=== PATIENT | male | born 1950 | race Caucasian/White ===

== ENCOUNTER 2018-01-16 10:37 | Emergency (ER) | payer OTHER ==
[2018-01-16] MEDS ORDERED: fentaNYL 100 MCG/2 ML INJ IVP ONE (10:51)
--- NOTE | 2018-01-16 10:51 | EDPHY ---
General Time Seen by Provider: 01/16/18 10:46 Narrative: CHIEF COMPLAINT: Fall, left elbow pain HISTORY OF PRESENT ILLNESS: Patient complains of left elbow pain status post fall. This happened just prior to arrival. He slipped on a wet board, falling 2 ft landing on the outward stretched left upper extremity. He felt a sudden onset of pain and giving it sensation of the left elbow. It is constant, severe pain. Unable to move the elbow due to this. Minimal pain in the shoulder, hand or wrist. No numbness or tingling. No weakness. No head strike or loss of consciousness no complaints of pain or injury anywhere else. No other associated complaints or modifying factors. Right-hand dominant REVIEW OF SYSTEMS: Ten systems reviewed and are negative unless otherwise noted in the HPI PCP: [facility] SPECIALISTS: [facility] PAST MEDICAL HISTORY: Coronary artery disease, mi, hypertension, previous smoker PAST SURGICAL HISTORY: No recent surgeries SOCIAL HISTORY: Quit smoking several years ago. No drug or alcohol use. Lives here independently. FAMILY HISTORY: Noncontributory EXAMINATION General Appearance: Alert, no distress Head: normocephalic, atraumatic. No Carver sign. No raccoon eyes. Eyes: Pupils equal and round, no conjunctival pallor or injection ENT, Mouth: Mucous membranes moist Neck: Normal inspection, supple, non-tender Cardiovascular: Regular rate. Symmetric radial pulses 2+. Gastrointestinal: Abdomen is soft and nontender Back: non-tender, no bony abnormalities Neurological: A&O, nonfocal, 2 point sensation is intact in the fingers left hand. There is no wrist drop of the left upper extremity. Interossei strength symmetric. Skin: Warm and dry, no rash. Superficial abrasion to the left palm and wrist. There is no puncture laceration overlying the left elbow or forearm Extremities: Deformity and tenderness to the left elbow. Unable to range due to pain and deformity. No tenderness to palpation of the left shoulder, wrist or hand. There is no tenderness in left snuffbox. Strength in the interossei symmetric. Psychiatric: Mood and affect normal DIFFERENTIAL DIAGNOSES: Including but not limited to elbow dislocation, radial head fracture, distal humeral fracture, subluxation, sprain, strain MDM: 10:50 a.m. Mechanical fall just prior to arrival with left elbow pain and suspected dislocation. He is neuro intact. He is in no acute distress. We are placing IV for pain control and in anticipation of procedural sedation. X-ray is currently at bedside. He has no injuries elsewhere. 10:57 a.m. X-ray as read by me, at bedside without the aid of the radiologist, reveals dislocation with avulsion and fracture at the distal humerus on the condyle. I reviewed the x-ray with Dr. Ellison and he has examine the patient at this time. We will proceed with orthopedic consultation and close reduction of the elbow. 11:10 a.m. Case discussed with on-call orthopedist Dr. Petersen. He reviewed the x-ray with me. He agreed that the patient is stable for close reduction. He recommends planted 90, CT scan of the elbow, follow-up in 3-5 days with orthopedist. 11:35 a.m. Successful reduction of the left elbow using fluoroscopy. Procedural sedation provided by Dr. Ellison. He has been placed in a splint. We will allow him to wake up further and then obtain a CT scan of the extremity. 12:15 p.m. I have re-evaluated the patient twice since the reduction. He is awake and alert. He is protecting his airway with no difficulty. We will proceed with CT scan. 12:45 p.m. Patient has return from CT scanner. He is neurovascular intact. His pain is controlled. We will obtain a disc with the images as he will need to follow up with [facility]. We discussed ED precautions, ice, elevation and pain medication as needed. He is comfortable this plan and discharged home stable condition. PROCEDURE: Closed reduction of the elbow Indicaton: Elbow dislocation Consent: Verbal Location: Left elbow Anesthesia: Procedural sedation by Dr. Ellison Procedure: Radial pulses are symmetric pre procedure. After time-out and good procedural sedation, the left elbow was placed in traction with counter traction with successful manipulation of the humerus into the olecranon using c- arm fluoroscopy. This was tolerated well. Radial pulses symmetric postprocedure. Complications: None Post-reduction film: Confirmed with c-arm, and CT scan is pending. SUPERVISION: Patient was evaluated and examined in conjunction with my secondary supervising physician as documented. We have both examined the patient. (Nikhil Lovelace) Procedure: Procedural sedation. A pre-sedation evaluation was completed on the patient. Patient is an appropriate candidate for procedural sedation. The risks of the sedation were discussed with the patient. A time out was completed. The patient was sedated with ketamine and propofol. The patient was monitored with continuous pulse oximetry and equipment monitor phototypesetting. There were no complications and no significant hypoxemia. I remained at the bedside for the sedation. The total time I spent in the procedural sedation was 25 min. (Raj Ellison) - Objective Vital Signs: Initial Vital Signs Temperature (C) 36.4 C 01/16/18 10:52 Heart Rate 87 01/16/18 10:52 Respiratory Rate 18 01/16/18 10:52 Blood Pressure 158/90 H 01/16/18 10:52 O2 Sat (%) 94 01/16/18 10:52 O2 Delivery Mode [Post Room Air Procedure 4th] O2 Delivery Mode [Post Nasal Cannula Procedure 3rd] O2 Delivery Mode [Post Non-Rebreather Mask Procedure 2nd] O2 Delivery Mode [Post Non-Rebreather Mask Procedure 1st] O2 Delivery Mode [Procedural Non-Rebreather Mask 1st] O2 Delivery Mode [.Immediate Non-Rebreather Mask Pre-Procedure] O2 Delivery Mode Room Air O2 (L/minute) [Post Procedure 2 3rd] O2 (L/minute) [Post Procedure 15 2nd] O2 (L/minute) [Post Procedure 15 1st] O2 (L/minute) [Procedural 1st] 15 O2 (L/minute) [.Immediate Pre- 15 Procedure] O2 (L/minute) 2 Allergies/Adverse Reactions: Sulfa (Sulfonamide Antibiotics) Allergy (Verified 01/16/18 10:51) Home Medications: Medication Instructions Recorded Aspirin 81mg (*) 01/16/18 Lipitor 01/16/18 Lisinopril 01/16/18 oxyCODONE HCL/ACETAMINOPHEN 1 each PO Q4-6PRN PRN #13 tablet 01/16/18 [Percocet 5-325 mg Tablet] Medications Given: Discontinued Medications Fentanyl (Sublimaze) 150 mcg IVP EDNOW ONE Stop: 01/16/18 10:52 Last Admin: 01/16/18 11:04 Dose: 100 mcg Ketamine HCl (Ketamine) 70 mg IVP EDNOW ONE Stop: 01/16/18 11:26 Last Admin: 01/16/18 11:25 Dose: 70 mg Ondansetron HCl (Zofran) 4 mg IVP EDNOW ONE Stop: 01/16/18 11:03 Last Admin: 01/16/18 11:05 Dose: 4 mg Propofol (Diprivan) 50 mg IVP EDNOW ONE Stop: 01/16/18 11:26 Last Admin: 01/16/18 11:27 Dose: 50 mg Departure - Departure Disposition: Home, Routine, Self-Care Clinical Impression: Dislocation, elbow closed, Fracture of lateral condyle of humerus Condition: Good Instructions: Oxycodone/Acetaminophen (By mouth), Elbow Dislocation (ED), Elbow Fracture (ED) Additional Instructions: 1. Nonweightbearing to left upper extremity until cleared by Orthopedics 2. Keep your splint in place at all times until seen by Orthopedics 3. Pain medication as provided as needed 4. ED precautions for worsening pain, numbness, tingling, weakness Referrals: [facility]. [Primary Care Provider] - As per Instructions Alex Petersen MD [Medical Doctor] - As per Instructions Prescriptions: oxyCODONE HCL/ACETAMINOPHEN [Percocet 5-325 mg Tablet] 1 each PO Q4-6PRN PRN # 13 tablet PRN Reason: Pain, Breakthrough
[2018-01-16] MEDS ORDERED: ONDANSETRON 4 MG/2 ML VIAL IVP ONE (11:02)
[2018-01-16] MEDS ORDERED: PROPOFOL/EMULSION 1,000 MG/100 ML BOTTLE IV ONE (11:07)
[2018-01-16] MEDS ORDERED: KETAMINE 200 MG/20 ML VIAL ONE (11:08)
[2018-01-16] MEDS ORDERED: PROPOFOL 200 MG/20 ML VIAL ONE (11:09)
[2018-01-16] MEDS ORDERED: KETAMINE 200 MG/20 ML VIAL IVP ONE (11:25)
[2018-01-16] MEDS ORDERED: PROPOFOL 200 MG/20 ML VIAL IVP ONE (11:25)
[2018-01-16 13:42] VITALS: BP 148/90
== END 2018-01-16 13:43 | disposition home or self-care (01) ==
LOC: EEVIPCON 10:37
PROC: 0RSMXZZ Reposition Left Elbow Joint, External Approach (ICD-10-PCS; principal; 2018-01-16)
DX: S53.025A Posterior dislocation of left radial head, initial encounter (principal); I25.10 Atherosclerotic heart disease of native coronary artery without angina pectoris; I25.2 Old myocardial infarction; I10 Essential (primary) hypertension; S42.452A Displaced fracture of lateral condyle of left humerus, initial encounter for closed fracture; Z79.82 Long term (current) use of aspirin; W17.89XA Other fall from one level to another, initial encounter
CPT/HCPCS: 24600; 73080; 73200; 96374; 96375; 99156; 99157; 99285; J2704; J3010